=== PATIENT | male | born 1955 | race Caucasian/White ===

== ENCOUNTER 2016-10-26 14:59 | Inpatient (IN) | payer BC ==
[~2016-10-26] VITALS: Ht 170.2 cm; Wt 72.7 kg
[~2016-10-26 14:59] MED LIST: BUSP5TAB59 PO; CHOL1CHW10 PO; CITA40TA4 PO
[2016-10-26] MEDS ORDERED: SODIUM CHLORIDE 0.9% 1000ML 1,000 ML IV SCH (15:12)
--- NOTE | 2016-10-26 15:19 | EMERGENCY ROOM VISIT NOTE ---
History Report prepared by Martita: Rony Chan Under the Supervision of: Dr. Jake Sorensen D.O. First contact with patient: 15:11 Chief Complaint: STROKE SYMPTOMS Stated Complaint: FLUTTERING IN EYES, BAD BEST, MRI SAID MINI STROKES Nursing Triage Summary: Triage note: pt reports he had an mri done at [address] [place] [address] yesterday due to having blurred vision and bad headaches x 6 days. pt reports he was called and told to come to ed because they said he is having mini strokes and part of his brain is not getting blood. History of Present Illness The patient is a 61 year old male who presents to the Emergency Room with complaints of persistent stroke symptoms that started 6 days ago. The patient had an MRI done outpatient yesterday, and was then called to come to the ED today due to the MRI revealing mini strokes. The patient has been having blurred vision and a headache for 6 days. He notes that his vision has been getting "fluttery" in both eyes. He initially had nausea and vomiting, but that has ceased. The patient denies any known irregular heartbeat or atrial fibrillation history. The patient is not on any blood thinners. His medical problems include depression, anxiety, and hyperlipidemia. The patient does not drink alcohol or use tobacco products. Source of History: patient, nursing staff Onset: 6 days ago Position: other (global - stroke symptoms) Timing: other (persistent) Associated Symptoms: + headache, No nausea (current), No vomiting (current) Note: Associated symptoms: Fluttering in both eyes, blurry vision. Review of Systems See HPI for pertinent positives & negatives. A total of 10 systems reviewed and were otherwise negative. Past Medical & Surgical Medical Problems: (1) Anxiety (2) Depressive Disorder Nec (3) Deviated Nasal Septum (4) GERD (gastroesophageal reflux disease) (5) Subacute CVA Surgical Problems: (1) History of nasal septoplasty (2) History of wisdom tooth extraction Family History FH: cancer FH: diabetes mellitus FH: heart disease Social History Smoking Status: Never Smoker Alcohol Use: occasionally Marital Status: Occupation Status: employed Current/Historical Medications Scheduled Atorvastatin (Atorvastatin Calcium), 10 MG PO DAILY Buspirone HCl (Buspirone HCl), 5 MG PO BID Cholecalciferol (Vitamin D3), 1,000 INTER.UNIT PO QAM Citalopram (Citalopram Hydrobromide), 40 MG PO HS Scheduled PRN Omeprazole (Prilosec), 20 MG PO DAILY PRN for Heartburn Allergies Coded Allergies: Bee Venom (Verified Allergy, Unknown, Swelling, 12/29/15) Physical Exam Vital Signs Date Time Temp Pulse Resp B/P Pulse Ox O2 Delivery O2 Flow Rate FiO2 10/26/16 16:06 52 16 150/84 97 Room Air 10/26/16 15:40 95 Room Air 10/26/16 15:38 63 10/26/16 15:07 36.7 61 18 153/77 96 Room Air Physical Exam GENERAL: Patient is awake, alert, and in no acute distress. Patient is resting comfortably and showing no signs of anxiety EYES: The conjunctivae are clear. The pupils are round and reactive. EARS, NOSE, MOUTH AND THROAT: The nose is without any evidence of any deformity. Mucous membranes are moist tongue is midline NECK: The neck is nontender and supple. No bruits noted to auscultation. RESPIRATORY: Normal respiratory effort is noted there is no evidence of wheezing rhonchi or rales CARDIOVASCULAR: Regular rate and rhythm noted there no murmurs rubs or gallops normal S1 normal S2 GASTROINTESTINAL: The abdomen is soft. Bowel sounds are present in all quadrants. Abdomen is nontender MUSCULOSKELETAL/EXTREMITIES: There is no evidence of gross deformity full range of motion is noted in the hips and shoulders SKIN: There is no obvious evidence of any rash. There are no petechiae, pallor or cyanosis noted. NEUROLOGIC: Patient is awake alert and oriented x3 strength is symmetric patellar reflexes are 2+ bilaterally Medical Decision & Procedures ER Provider Diagnostic Interpretation: Radiology results as stated below per my review and radiologist interpretation: HEAD CT NONCONTRAST CT DOSE: 537.48 mGy.cm HISTORY: Stroke symptoms. Stroke TECHNIQUE: Multiaxial CT images of the head were performed without the use of intravenous contrast. Automated exposure control was utilized for this study. Comparison: Head CT 02/12/2016. Findings: The paranasal sinuses and mastoid air cells are clear. The calvarium and skull base are intact. The ventricles and sulci are within normal limits. There is no mass, hematoma, midline shift, or acute infarct. Impression: No acute intracranial abnormality. Electronically signed by: Cristhian Poole M.D. 10/26/2016 3:57 PM Dictated Date/Time: 10/26/2016 3:54 PM CHEST ONE VIEW PORTABLE CLINICAL HISTORY: Stroke HEADACHE COMPARISON STUDY: 12/27/2011 FINDINGS: The cardiac and mediastinal contours are normal. There is no evidence of focal pulmonary consolidation. There is no evidence of failure. No pleural effusions are visualized.[ There are minor right basilar atelectatic changes. IMPRESSION: No active disease in the chest. Electronically signed by: Kashif Eller M.D. 10/26/2016 3:23 PM Dictated Date/Time: 10/26/2016 3:22 PM Laboratory Results 10/26/16 16:10 Red Blood Count 4.84, Mean Corpuscular Volume 90.5, Mean Corpuscular Hemoglobin 31.4, Mean Corpuscular Hemoglobin Concent 34.7, Mean Platelet Volume 10.5, Neutrophils (%) (Auto) 65.7, Lymphocytes (%) (Auto) 23.6, Monocytes (%) (Auto) 8.1, Eosinophils (%) (Auto) 1.8, Basophils (%) (Auto) 0.6, Neutrophils # (Auto) 5.60, Lymphocytes # (Auto) 2.01, Monocytes # (Auto) 0.69, Eosinophils # (Auto) 0.15, Basophils # (Auto) 0.05 10/26/16 16:10 Test 10/26/16 16:00 10/26/16 16:10 Urine Color YELLOW Urine Appearance CLEAR (CLEAR) Urine pH 7.5 (4.5-7.5) Urine Specific [place] 1.004 (1.000-1.030) Urine Protein NEG (NEG) Urine Glucose (UA) NEG (NEG) Urine Ketones NEG (NEG) Urine Occult Blood NEG (NEG) Urine Nitrite NEG (NEG) Urine Bilirubin NEG (NEG) Urine Urobilinogen NEG (NEG) Urine Leukocyte Esterase NEG (NEG) Urine Opiates Screen NEG (NEG) Urine Methadone, Qualitative NEG (NEG) Urine Barbiturates NEG (NEG) Urine Phencyclidine (PCP) Level NEG (NEG) Ur Amphetamine/Methamphetamine NEG (NEG) MDMA (Ecstasy) Screen NEG (NEG) Urine Benzodiazepines Screen NEG (NEG) Urine Cocaine Metabolite NEG (NEG) Urine Marijuana (THC) NEG (NEG) White Blood Count 8.52 K/uL (4.8-10.8) Red Blood Count 4.84 M/uL (4.7-6.1) Hemoglobin 15.2 g/dL (14.0-18.0) Hematocrit 43.8 % (42-52) Mean Corpuscular Volume 90.5 fL (80-100) Mean Corpuscular Hemoglobin 31.4 pg (25-34) Mean Corpuscular Hemoglobin Concent 34.7 g/dl (32-36) Platelet Count 204 K/uL (130-400) Mean Platelet Volume 10.5 fL (7.4-10.4) Neutrophils (%) (Auto) 65.7 % Lymphocytes (%) (Auto) 23.6 % Monocytes (%) (Auto) 8.1 % Eosinophils (%) (Auto) 1.8 % Basophils (%) (Auto) 0.6 % Neutrophils # (Auto) 5.60 K/uL (1.4-6.5) Lymphocytes # (Auto) 2.01 K/uL (1.2-3.4) Monocytes # (Auto) 0.69 K/uL (0.11-0.59) Eosinophils # (Auto) 0.15 K/uL (0-0.5) Basophils # (Auto) 0.05 K/uL (0-0.2) RDW Standard Deviation 40.1 fL (36.4-46.3) RDW Coefficient of Variation 12.0 % (11.5-14.5) Immature Granulocyte % (Auto) 0.2 % Immature Granulocyte # (Auto) 0.02 K/uL (0.00-0.02) Prothrombin Time 10.4 SECONDS (9.0-12.0) Prothromb Time International Ratio 1.0 (0.9-1.1) Activated Partial Thromboplast Time 27.5 SECONDS (21.0-31.0) Partial Thromboplastin Ratio 1.1 Anion Gap 9.0 mmol/L (3-11) Est Creatinine Clear Calc Drug Dose 85.5 ml/min Estimated GFR () 109.5 Estimated GFR (Non- 94.5 BUN/Creatinine Ratio 11.4 (10-20) Calcium Level 9.0 mg/dl (8.5-10.1) Total Bilirubin 0.9 mg/dl (0.2-1) Direct Bilirubin 0.2 mg/dl (0-0.2) Aspartate Amino Transf (AST/SGOT) 29 U/L (15-37) Alanine Aminotransferase (ALT/SGPT) 42 U/L (12-78) Alkaline Phosphatase 110 U/L (45-117) Total Creatine Kinase 73 U/L (39-308) Creatine Kinase MB 0.9 ng/ml (0.5-3.6) Creatine Kinase MB Ratio 1.2 (0-3.0) Troponin I < 0.015 ng/ml (0-0.045) Total Protein 7.3 gm/dl (6.4-8.2) Albumin 3.9 gm/dl (3.4-5.0) Laboratory results per my review. Medications Administered Medications (Trade) Dose Ordered Sig/Elie Route Start Time Stop Time Status Last Admin Dose Admin Sodium Chloride (Nss 1000ml) 1,000 ml @ 50 mls/hr Q20H IV 10/26/16 15:12 11/25/16 15:11 10/26/16 16:00 50 MLS/HR ECG Indication: other (stroke symptoms) Rate (beats per minute): 55 Rhythm: sinus bradycardia Findings: no ectopy, other (no acute ST segment abnormalities, LVH noted by voltage criteria) Comparison ECG Date: no prior available ED Course 1511: The patient was evaluated in room B7. A complete history and physical examination were performed. 1512: Ordered NSS 1000 ml @ 50 mls/hr IV. 1613: I reevaluated the patient and he is resting comfortably. The patient verbally expressed understanding and agreement with the treatment plan. The patient will be evaluated for further treatment. 1616: I discussed the patient with Kait Manzanares. She will evaluate the patient for further treatment. Medical Decision Differential diagnosis: Etiologies such as metabolic, infection, hypo/hyperglycemia, electrolyte abnormalities, cardiac sources, intracerebral event, toxicologic, neurologic, as well as others were entertained. Nursing notes reviewed. The patient's MRI report was also reviewed. The patient is a 61-year-old male who presented to the emergency department for an acute neurologic problem. The patient states he's been having problems with his vision and fluttering in his vision for 6 days. The patient states his symptoms are slowly improving. The patient called his primary care physician and was sent for an MRI as an outpatient. The MRI report was obtained and the patient was told to go directly to the emergency department. The MRI appeared to show multiple areas of subacute infarct and he was felt to be at high risk for embolic phenomenon causing his complaints. The patient's CAT scan today does not show any acute bleeding. I discussed the patient's laboratory and radiographic studies with him. At this time he does not appear to be a candidate for TPA because of the onset of symptoms being greater than one day ago. He also has no focal neurologic deficits at this time. I discussed his case with the on-call [facility] hospitalist group. They've agreed to evaluate the patient in the emergency department for further management and disposition. It is possible he may require further workup such as echocardiogram and carotid Dopplers to further evaluate the cause of the MRI findings. Consults Time Called: 1606 Consulting Physician: Kait Manzanares Returned Call: 1616 I discussed the patient with Kait Manzanares. She will evaluate the patient for further treatment. Impression Primary Impression: CVA (cerebral vascular accident) Scribe Attestation The scribe's documentation has been prepared under my direction and personally reviewed by me in its entirety. I confirm that the note above accurately reflects all work, treatment, procedures, and medical decision making performed by me. Stroke t-PA Criteria Reviewed Does NOT meet criteria for t-PA Strict Exclusion Criteria Normal neurologic examination Departure Information Dispostion Being Evaluated By Hospitalist Referrals Watson Cole M.D. (PCP) Patient Instructions [facility] Problem Qualifiers Primary Impression: CVA (cerebral vascular accident) CVA mechanism: unspecified Qualified Codes: I63.9 - Cerebral infarction, unspecified
--- NOTE | 2016-10-26 15:25 | DIAGNOSTIC IMAGING REPORT ---
CHEST ONE VIEW PORTABLE CLINICAL HISTORY: Stroke HEADACHE COMPARISON STUDY: 12/27/2011 FINDINGS: The cardiac and mediastinal contours are normal. There is no evidence of focal pulmonary consolidation. There is no evidence of failure. No pleural effusions are visualized.[ There are minor right basilar atelectatic changes. IMPRESSION: No active disease in the chest. Electronically signed by: Kashif Eller M.D. 10/26/2016 3:23 PM Dictated Date/Time: 10/26/2016 3:22 PM
[2016-10-26] MEDS ORDERED: BSP/5 PO (15:38)
--- NOTE | 2016-10-26 16:00 | DIAGNOSTIC IMAGING REPORT ---
HEAD CT NONCONTRAST CT DOSE: 537.48 mGy.cm HISTORY: Stroke symptoms. Stroke TECHNIQUE: Multiaxial CT images of the head were performed without the use of intravenous contrast. Automated exposure control was utilized for this study. Comparison: Head CT 02/12/2016. Findings: The paranasal sinuses and mastoid air cells are clear. The calvarium and skull base are intact. The ventricles and sulci are within normal limits. There is no mass, hematoma, midline shift, or acute infarct. Impression: No acute intracranial abnormality. Electronically signed by: Cristhian Poole M.D. 10/26/2016 3:57 PM Dictated Date/Time: 10/26/2016 3:54 PM
[2016-10-26 16:22] LABS: MANUAL MICROSCOPIC REQUIRED? NO; REVIEW REQ? NO; URINE APPEARANCE CLEAR (CLEAR); URINE BILIRUBIN NEG (NEG); URINE COLOR YELLOW; URINE NITRITE NEG (NEG); URINE PH 7.5 (4.5-7.5); URINE SPECIFIC GRAVITY 1.004 (1.000-1.030); UROBILINOGEN NEG (NEG)
[2016-10-26 16:29] LABS: BASO % 0.6 %; BASO ABS # 0.05 K/uL (0-0.2); COMPLETE YES; EOS % 1.8 %; HEMATOCRIT 43.8 % (42-52); IG% 0.2 %; LYMPH % 23.6 %; LYMPH ABS # 2.01 K/uL (1.2-3.4); MEAN CELL VOLUME 90.5 fL (80-100); MEAN CORPUSCULAR HEMOGLOBIN 31.4 pg (25-34); MEAN CORPUSCULAR HGB CONC 34.7 g/dl (32-36); MEAN PLATELET VOLUME 10.5 fL (7.4-10.4); MONO % 8.1 %; NEUT % 65.7 %; PLATELET COUNT 204 K/uL (130-400); RED BLOOD COUNT 4.84 M/uL (4.7-6.1); WHITE BLOOD COUNT 8.52 K/uL (4.8-10.8)
[2016-10-26 16:38] LABS: PARTIAL THROMBOPLASTIN RATIO 1.1; PROTHROMBIN TIME (PATIENT) 10.4 SECONDS (9.0-12.0)
[2016-10-26 16:46] LABS: ALT/SGPT 42 U/L (12-78); BLOOD UREA NITROGEN 10 mg/dl (7-18); BUN/CREATININE RATIO 11.4 (10-20); CARBON DIOXIDE 26 mmol/L (21-32); CHLORIDE 105 mmol/L (98-107); CREATININE 0.87 mg/dl (0.60-1.40); GLUCOSE 86 mg/dl (70-99); POTASSIUM 3.7 mmol/L (3.5-5.1); SODIUM 140 mmol/L (136-145)
[2016-10-26 16:51] LABS: ALKALINE PHOSPHATASE 110 U/L (45-117); AST/SGOT 29 U/L (15-37); CKMB/CK RATIO 1.2 (0-3.0)
[2016-10-26 16:57] LABS: BENZODIAZEPINE, URINE NEG (NEG); COCAINE,URINE NEG (NEG); PHENCYCLIDINE, URINE NEG (NEG)
[2016-10-26] MEDS ORDERED: ACETAMINOPHEN 325 MG TAB PO PRN (17:30)
[2016-10-26] MEDS ORDERED: PHARMACIST DISCHARGE MED REC CONSULT PRN (17:30)
[2016-10-26] MEDS ORDERED: ASPIRIN 81 MG ECTAB PO ONE (17:30)
[2016-10-26] MEDS ORDERED: ONDANSETRON INJ 2 MG/ML 2 ML VIAL IV PRN (17:30)
[2016-10-26] MEDS ORDERED: PANTOprazole SOD 40 MG TAB PO PRN (18:00)
[2016-10-26] MEDS ORDERED: OPTIRAY 320 IV PRN (18:15)
--- NOTE | 2016-10-26 18:22 | History and Physical ---
History & Physical Date & Time of Service: Oct 26, 2016 at 17:40 Chief Complaint: Fluttering In Eyes, Bad Best, Mri Said Mini Strokes Primary Care Physician: Watson Cole M.D. History of Present Illness Source: patient, spouse ( at bedside), clinic records This is a 61 year old male with PMH of dyslipidemia and other problems listed below who was sent to the ED for abnormal outpatient MRI brain. Patient reports 6 days ago he developed "fluttering" of his vision with "dark patches" in his vision. After the onset of vision changes developed a severe right parietal headache. The visual changes resolved the following day but headache persisted. Had 1 episode N/V 5 days ago which resolved. He was seen in [facility] internal medicine clinic on 10/22 and had outpatient MRI done yesterday 10/25 which showed 2 focal areas of subacute ischemia, so was sent to the ER. Pt states headache is currently rated 4/10. Has tried ibuprofen at home which took the edge off. He reports having similar BEST with visual changes in the past which self resolved so he was not evaluated by a physician. Had chest pain in the past, non- exertional, related to anxiety at work, but this has not occurred in the past week. Denies fever, chills, speech or swallowing difficulty, facial droop, focal weakness or numbness, dizziness, balance difficulty, SOB, abdominal pain, diarrhea, urinary changes, calf pain, edema, rash. Denies history of HTN, DM, arrhythmia, TIA, CVA, migraine. He is not aware of any hx of GI bleeding or brain bleed. Patient's outpatient MRI did show an area consistent with small old bleed. Past Medical/Surgical History Medical Problems: (1) Anxiety Status: Chronic (2) Depression Status: Chronic (3) Dyslipidemia Status: Chronic (4) Generalized anxiety disorder Status: Chronic (5) GERD (gastroesophageal reflux disease) Status: Chronic Surgical Problems: (1) History of nasal septoplasty Status: Chronic (2) History of wisdom tooth extraction Status: Chronic Family History CVA GRANDMOTHER FH: cancer FH: diabetes mellitus FH: heart disease Social History Smoking Status: Never Smoker Smokeless Tobacco Use: No Alcohol Use: occasionally (1 drink per month) Drug Use: none Marital Status: Housing status: lives with significant other (with ) Occupational Status: employed (works for [employer]) Immunizations History of Influenza Vaccine: No History of Tetanus Vaccine?: Yes History of Pneumococcal: No History of Hepatitis B Vaccine: No Allergies Coded Allergies: Bee Venom (Verified Allergy, Unknown, Swelling, 12/29/15) Home Medications Scheduled Atorvastatin (Atorvastatin Calcium), 10 MG PO DAILY Buspirone HCl (Buspirone HCl), 5 MG PO QAM Cholecalciferol (Vitamin D3), 1,000 INTER.UNIT PO QAM Citalopram (Citalopram Hydrobromide), 40 MG PO HS Scheduled PRN Omeprazole (Prilosec), 20 MG PO DAILY PRN for Heartburn Review of Systems Ten point ROS performed with pertinent positives and negatives noted in HPI. Physical Exam Vital Signs Date Time Temp Pulse Resp B/P Pulse Ox O2 Delivery O2 Flow Rate FiO2 10/26/16 16:06 52 16 150/84 97 Room Air 10/26/16 15:40 95 Room Air 10/26/16 15:38 63 10/26/16 15:07 36.7 61 18 153/77 96 Room Air General Appearance: WD/WN, no apparent distress, + pertinent finding (pleasant alert 61 year old male, no distress, at bedside) Head: normocephalic, atraumatic Eyes: normal inspection, PERRL, EOMI ENT: hearing grossly normal, pharynx normal Neck: supple, no JVD, no carotid bruits, trachea midline Respiratory/Chest: lungs clear, normal breath sounds, no respiratory distress, no accessory muscle use Cardiovascular: regular rate, rhythm, no murmur Abdomen/GI: normal bowel sounds, non tender, soft Extremities/Musculoskelatal: no calf tenderness, no pedal edema Neurologic/Psych: dye weigher helper II-XII nml as tested, no motor/sensory deficits, alert, normal mood/affect, oriented x 3, + pertinent finding (finger to nose intact. toes downgoing. gait not assessed.) Skin: normal color, warm/dry Diagnostics Laboratory Results Results Past 24 Hours Test 10/26/16 16:00 10/26/16 16:10 Range/Units Urine Color YELLOW Urine Appearance CLEAR CLEAR Urine pH 7.5 4.5-7.5 Urine Specific [place] 1.004 1.000-1.030 Urine Protein NEG NEG Urine Glucose (UA) NEG NEG Urine Ketones NEG NEG Urine Occult Blood NEG NEG Urine Nitrite NEG NEG Urine Bilirubin NEG NEG Urine Urobilinogen NEG NEG Urine Leukocyte Esterase NEG NEG Urine Opiates Screen NEG NEG Urine Methadone, Qualitative NEG NEG Urine Barbiturates NEG NEG Urine Phencyclidine (PCP) Level NEG NEG Ur Amphetamine/Methamphetamine NEG NEG MDMA (Ecstasy) Screen NEG NEG Urine Benzodiazepines Screen NEG NEG Urine Cocaine Metabolite NEG NEG Urine Marijuana (THC) NEG NEG White Blood Count 8.52 4.8-10.8 K/uL Red Blood Count 4.84 4.7-6.1 M/uL Hemoglobin 15.2 14.0-18.0 g/dL Hematocrit 43.8 42-52 % Mean Corpuscular Volume 90.5 80-100 fL Mean Corpuscular Hemoglobin 31.4 25-34 pg Mean Corpuscular Hemoglobin Concent 34.7 32-36 g/dl Platelet Count 204 130-400 K/uL Mean Platelet Volume 10.5 7.4-10.4 fL Neutrophils (%) (Auto) 65.7 % Lymphocytes (%) (Auto) 23.6 % Monocytes (%) (Auto) 8.1 % Eosinophils (%) (Auto) 1.8 % Basophils (%) (Auto) 0.6 % Neutrophils # (Auto) 5.60 1.4-6.5 K/uL Lymphocytes # (Auto) 2.01 1.2-3.4 K/uL Monocytes # (Auto) 0.69 0.11-0.59 K/uL Eosinophils # (Auto) 0.15 0-0.5 K/uL Basophils # (Auto) 0.05 0-0.2 K/uL RDW Standard Deviation 40.1 36.4-46.3 fL RDW Coefficient of Variation 12.0 11.5-14.5 % Immature Granulocyte % (Auto) 0.2 % Immature Granulocyte # (Auto) 0.02 0.00-0.02 K/uL Prothrombin Time 10.4 9.0-12.0 SECONDS Prothromb Time International Ratio 1.0 0.9-1.1 Activated Partial Thromboplast Time 27.5 21.0-31.0 SECONDS Partial Thromboplastin Ratio 1.1 Sodium Level 140 136-145 mmol/L Potassium Level 3.7 3.5-5.1 mmol/L Chloride Level 105 98-107 mmol/L Carbon Dioxide Level 26 21-32 mmol/L Anion Gap 9.0 3-11 mmol/L Blood Urea Nitrogen 10 7-18 mg/dl Creatinine 0.87 0.60-1.40 mg/dl Est Creatinine Clear Calc Drug Dose 85.5 ml/min Estimated GFR () 109.5 Estimated GFR (Non- 94.5 BUN/Creatinine Ratio 11.4 10-20 Random Glucose 86 70-99 mg/dl Calcium Level 9.0 8.5-10.1 mg/dl Total Bilirubin 0.9 0.2-1 mg/dl Direct Bilirubin 0.2 0-0.2 mg/dl Aspartate Amino Transf (AST/SGOT) 29 15-37 U/L Alanine Aminotransferase (ALT/SGPT) 42 12-78 U/L Alkaline Phosphatase 110 45-117 U/L Total Creatine Kinase 73 39-308 U/L Creatine Kinase MB 0.9 0.5-3.6 ng/ml Creatine Kinase MB Ratio 1.2 0-3.0 Troponin I < 0.015 0-0.045 ng/ml Total Protein 7.3 6.4-8.2 gm/dl Albumin 3.9 3.4-5.0 gm/dl Diagnostic Radiology HEAD CT NONCONTRAST CT DOSE: 537.48 mGy.cm HISTORY: Stroke symptoms. Stroke TECHNIQUE: Multiaxial CT images of the head were performed without the use of intravenous contrast. Automated exposure control was utilized for this study. Comparison: Head CT 02/12/2016. Findings: The paranasal sinuses and mastoid air cells are clear. The calvarium and skull base are intact. The ventricles and sulci are within normal limits. There is no mass, hematoma, midline shift, or acute infarct. Impression: No acute intracranial abnormality. CHEST ONE VIEW PORTABLE CLINICAL HISTORY: Stroke HEADACHE COMPARISON STUDY: 12/27/2011 FINDINGS: The cardiac and mediastinal contours are normal. There is no evidence of focal pulmonary consolidation. There is no evidence of failure. No pleural effusions are visualized.[ There are minor right basilar atelectatic changes. IMPRESSION: No active disease in the chest. OUTPATIENT MRI 10/25/16 IMPRESSION: 1. 2 focal areas of restricted diffusion observed int eh right cerebral hemisphere; 1 posterior to the atria of the right lateral ventricle in the right parioeto-occipital subcortical white matter and the 2nd posteriorly i the subcortical white matter of the right occipital lobe. There is corresponding increased FLAIR and T2 singal in these regions and findings are therefore most consistent with regions of early subacute ischemia. 2. 7 mm focus of susceptibility artifact int eh left temporal lobe insular coretex most consistent with hemosiderin deposition from small old bleed. 3. Bilateral cerebral hemisphere microvascular chronic ischemic change. 4. Mild atrophic change. EKG sinus bradycardia rate 55 Impression Assessment and Plan SUBACUTE CVA Onset of symptoms 6 days ago Outpatient MRI findings listed above Risk factor: dyslipidemia, no other known risk factors CT head in ER- no acute findings EKG- sinus bradycardia Monitor in telemetry to r/o arrhythmia, check CTA head and neck, echo with bubble study Start aspirin 325 mg daily- 1st dose now Continue statin; check fasting lipid panel in am Neuro checks PT, OT, speech consultations Neurology consulted; discussed with Dr. Arevalo; appreciate input DYSLIPIDEMIA Continue statin Fasting lipid panel in am ANXIETY/ DEPRESSION Continue Buspar and Celexa GERD Continue PRN PPI DVT PROPHYLAXIS Lovenox SQ FULL CODE DISPOSITION Follows with Dr. Cole for primary care Patient seen in collaboration with Dr. Recinos. Please see her addendum. I have seen and examined the patient and agree with the assessment and plan as stated above. MRI findings consistent with subacute stroke. Old bleed may have been from a fall last January where he struck his head on a doorframe? Visual symptoms resolved 5 days ago and his headache is improved. Denies nausea and vomiting since 5 days ago. All other stroke symptoms denied as above. On physical, vitals are stable and there are no neuro deficits. Gait was not assessed but he reports ambulating to the bathroom earlier without any issues. Additionally, fundoscopic exam appears normal. CTA tonight was negative. Agree with plan above including Neuro consult, ASA 325mg and will increase Lipitor to 80mg for secondary prevention of stroke. Appreciate Neuro recs in am. Needs TTE and formal evals as above, then likely ok to go home. Tonia Recinos, DO Level of Care Telemetry Resuscitation Status FULL RESUSCITATION VTE Prophylaxis VTE Risk Assessment Done? Y/N: Yes Risk Level: Moderate Given or contraindicated: Enoxaparin (Lovenox)SQ
--- NOTE | 2016-10-26 18:51 | DIAGNOSTIC IMAGING REPORT ---
HEAD CTA HISTORY: Stroke symptoms. CVA TECHNIQUE: Multiaxial CT images of the head were performed after the intravenous administration of contrast to evaluate the major cerebral vessels. Maximum intensity projection images were also obtained. COMPARISON: Head CT 10/26/2016 FINDINGS: There is no mass, hematoma, midline shift, or acute infarct. Visualized intracranial internal carotid arteries, distal vertebral arteries, and basilar artery are widely patent. There is no significant stenosis, occlusion, or aneurysm seen within the bilateral ACAs, MCAs, or supervisor [employer] wood. IMPRESSION: No significant stenosis, occlusion, or aneurysm within the [place]. Electronically signed by: Cristhian Poole M.D. 10/26/2016 6:49 PM Dictated Date/Time: 10/26/2016 6:45 PM
--- NOTE | 2016-10-26 18:54 | DIAGNOSTIC IMAGING REPORT ---
NECK CTA HISTORY: Stroke symptoms. TECHNIQUE: Multiaxial CT images of the neck were performed following the intravenous administration of contrast to evaluate the major cervical vessels. Maximum intensity projection images were also obtained. All measurements were calculated based on NASCET criteria. COMPARISON STUDY: None. FINDINGS: The aortic arch and proximal great vessels are widely patent. There is no significant stenosis, occlusion, or dissection identified within the bilateral common carotid, internal carotid, or vertebral arteries. IMPRESSION: No significant stenosis, occlusion, or dissection identified within the carotid or vertebral arteries. Electronically signed by: Cristhian Poole M.D. 10/26/2016 6:52 PM Dictated Date/Time: 10/26/2016 6:49 PM
[2016-10-26] MEDS ORDERED: ASPIRIN 325 MG ECTAB PO ONE (19:00)
[2016-10-26 19:05] VITALS: BP 134/93; PULSE 56; TEMP 36.6; O2SAT 96; Ht 170.2 cm; Wt 72.7 kg
[2016-10-26] MEDS: CITALOPRAM 40 MG TAB PO SCH (20:07)
[2016-10-26] MEDS: ENOXAPARIN 40 MG/0.4 ML SYR SC SCH (20:08)
[2016-10-26] MEDS ORDERED: ATORVASTATIN 40 MG TAB PO ONE (22:00)
[2016-10-26] MEDS ORDERED: OMEP20CA9 PO (22:59)
[2016-10-26] MEDS ORDERED: LPT10 PO (22:59)
[2016-10-27] VITALS (10 sets, daily range): BP systolic 107–141; BP diastolic 62–71; PULSE 52–64; TEMP 36.5–36.8; O2SAT 92–95
[2016-10-27 06:17] LABS: ESTIMATED AVERAGE GLUCOSE 157 mg/dl; HA1C FLAG Normal (Normal)
[2016-10-27 06:27] LABS: BASO % 1.2 %; COMPLETE YES; EOS % 3.6 %; HEMATOCRIT 44.4 % (42-52); IG% 0.1 %; LYMPH ABS # 2.52 K/uL (1.2-3.4); MEAN CORPUSCULAR HEMOGLOBIN 31.8 pg (25-34); MEAN CORPUSCULAR HGB CONC 34.9 g/dl (32-36); MEAN PLATELET VOLUME 10.3 fL (7.4-10.4); MONO % 9.6 %; NEUT % 55.5 %; PLATELET COUNT 204 K/uL (130-400); RED BLOOD COUNT 4.88 M/uL (4.7-6.1); WHITE BLOOD COUNT 8.41 K/uL (4.8-10.8)
[2016-10-27 07:06] LABS: BUN/CREATININE RATIO 14.9 (10-20); CALCIUM 9.1 mg/dl (8.5-10.1); CREATININE 0.91 mg/dl (0.60-1.40)
[2016-10-27 07:09] LABS: CHOLESTEROL/HDL RATIO 4.6
[2016-10-27] MEDS: ASPIRIN 325 MG ECTAB PO SCH (08:56)
[2016-10-27] MEDS: CHOLECALCIFEROL 1000 INTER.UNIT TAB PO SCH (08:56)
[2016-10-27] MEDS ORDERED: ATORVASTATIN 10 MG TAB PO SCH (09:00)
[2016-10-27] MEDS ORDERED: ASPIRIN 81 MG ECTAB PO SCH (09:00)
--- NOTE | 2016-10-27 10:18 | NEUROLOGY CONSULTATION ---
DATE OF CONSULTATION: 10/27/2016 DATE OF CONSULTATION: 10/27/2016. REASON FOR CONSULTATION: New stroke. HISTORY OF PRESENT ILLNESS: The patient is a 61-year-old left-handed male with hyperlipidemia on medications, who approximately 7 days prior to admission developed fluttering in his vision with some dark patches. Almost half an hour after the onset, he developed a modest right parietal headache which was persistent. The visual symptoms lasted about 24 hours and then resolved, but the headache persisted. He had one episode of nausea and vomiting 5 days prior, was seen by primary, had an outpatient MRI at [place] [id number] on which showed a right parietal, right occipital infarction which were subacute and an area of hemosiderin deposition in the left temporal lobe with chronic microvascular changes. The patient notes some mild unsteadiness today, but otherwise no new symptoms. He had been well, had not had any head or neck injury, medical or dental procedures, chest pain, chest pain with exertion, palpitations or shortness of breath. He has been well. No fevers, chills, sweats, rashes. No calf swelling. He has not had any diarrhea. PAST MEDICAL HISTORY: Anxiety, depression, dyslipidemia, reflux. He has no history of rheumatic fever, murmur, DVT, cancer, PE, stroke or WI. SURGICAL HISTORY: Nasal septoplasty, tracheostomy when he had pneumonia at age 5, wisdom tooth extraction. SOCIAL HISTORY: Nonsmoker, nondrinker. The patient occasionally drinks, works at [employer]. FAMILY HISTORY: Grandmother had a stroke. Father's family has early heart disease. ALLERGIES: BEE VENOM. HOME MEDICATIONS: Atorvastatin, buspirone, vitamin D3 and Celexa, p.r.n. omeprazole. REVIEW OF SYSTEMS: As above. A CT of the head in our facility noncontrast is unremarkable. CTA of the head and neck showed no significant stenosis, occlusion intersection with the vertebrobasilar system. A CTA of the head showing no significant stenosis, occlusion or aneurysm within the lower brule of [place]. The patient's baseline EKG showed sinus bradycardia, moderate voltage criteria for LVH. LABORATORY DATA: White count 8.52, H\T\H 15/43, platelet count 204. PT 10.4, PTT 27.5. Chemistry panel notable for a LDL cholesterol 93. Hemoglobin A1c of 7.1. Others noncontributory. PHYSICAL EXAMINATION: VITAL SIGNS: 36.7, 59, 18, 141/71. GENERAL: The patient is awake and alert. There is normal speech and language. He is oriented x3 and his affect is appropriate. HEAD: Normocephalic, atraumatic. NECK: Supple. There is no temporal tenderness or temporal artery tenderness. NEUROLOGIC: Pupils are equal and reactive. I was unable to reliably visualize the optic nerves. There is a left inferior temporal quadrantanopsia, otherwise there is normal motility, facial sensation, facial symmetry, normal speech and language. Tongue is midline. MOTOR: Normal bulk and tone. Full strength, no drift. Normal rapid alternating movements. Symmetric reflexes. Downgoing toes. Ejaven-xb-xpoq and pqmb-wg-wyfi are normal. His gait is unremarkable. He has mild difficulty with tandem. Reflexes symmetric. Toes downgoing. Sensation intact to light touch, temperature. There was no double simultaneous extinction. IMPRESSION: By report right STRATEGY ASSOCIATE, MCA infarction.with neg CTA head/neck PLAN: Aspirin, add Plavix, after 3 days reduce the dose of aspirin to 81 mg, echo with bubble study, telemetric monitoring, hypercoagulable state, CardioNet monitor as an outpatient. Query treat for diabetes and more vigorous lowering of LDL with a goal LDL of 70. Will follow with you. ABE
[2016-10-27] MEDS: CLOPIDOGREL BISULFATE 75 MG TAB PO SCH (10:39)
--- NOTE | 2016-10-27 12:25 | ECHOCARDIOGRAM REPORT ---
*NOTICE TO RECEIVING REPUBLICAN AGENCY This information is strictly Confidential and protected under [place] law. [place] law prohibits you from making any further disclosure of this information unless further disclosure is expressly permitted by the written consent of the person to whom it pertains or is authorized by law. A general authorization for the release of medical or other information is not sufficient for this purpose. Hospital accepts no responsibility if the information is made available to any other person, INCLUDING THE PATIENT. Interpretation Summary * Name: CANDIDA ROBERTS Study Date: 10/27/2016 07:23 AM BP: 122/63 mmHg * Patient Location: .2E\S\E209\S\1 HR: 58 * : 1955 (M/d/yyyy) Gender: Male Height: 67 in * Age: 61 yrs Ethnicity: CA Weight: 154 lb * Ordering Physician: Akila Daniels * Referring Physician: No Doctor, Assigned * Performed By: Ángela Hoffmann RDCS * * Reason For Study: STROKE * BSA: 1.8 m2 * History: STROKE * -- Conclusions -- * The left ventricle is normal in size. * There is mild concentric left ventricular hypertrophy. * The left ventricular wall motion is normal. * Left ventricular systolic function is normal. * Ejection Fraction = 60-65%. * Aortic valve sclerosis mild, without significant aortic valvular stenosis. * Mild aortic regurgitation. * The interatrial septum is intact with no evidence for an atrial septal defect. * Injection of contrast documented no interatrial shunt. Procedure Details * A saline contrast injection was performed to assess for cardiac shunting. * The injection was performed through an intravenous line in the left arm. * The attending nurse who injected the saline contrast was STEVEN BRIDGES. * A total of 20 cc of agitated saline was given. * A complete two-dimensional transthoracic echocardiogram was performed (2D, M-mode, Doppler and color flow Doppler). Left Ventricle * The left ventricle is normal in size. * There is mild concentric left ventricular hypertrophy. * Ejection Fraction = 60-65%. * Left ventricular systolic function is normal. * The left ventricular wall motion is normal. Right Ventricle * The right ventricle is normal in size and function. Atria * The left atrial size is normal. * Right atrial size is normal. * The interatrial septum is intact with no evidence for an atrial septal defect. * Injection of contrast documented no interatrial shunt. Mitral Valve * The mitral valve anatomy is normal. * There is no mitral valve stenosis. * There is trace mitral regurgitation. Tricuspid Valve * The tricuspid valve anatomy is normal. * There is no tricuspid stenosis. * There is trace tricuspid regurgitation. Aortic Valve * The aortic valve is trileaflet. * Aortic valve sclerosis mild, without significant aortic valvular stenosis. * Mild aortic regurgitation. Pulmonic Valve * The pulmonic valve is not well visualized. Great Vessels * The aortic root is normal size. Pericardium/Pleural * There is no pericardial effusion. Great Vessels * Normal inferior vena cava diameter and respiratory variation suggests normal central venous pressure. MMode 2D Measurements and Calculations IVSd 1.2 cm IVSs 1.6 cm LVIDd 4.5 cm LVIDs 2.9 cm LVPWd 1.0 cm LVPWs 1.3 cm IVS/LVPW 1.2 FS 34.7 % EDV(Teich) 92.6 ml ESV(Teich) 33.3 ml EF(Teich) 64.0 % EDV(cubed) 91.3 ml ESV(cubed) 25.4 ml EF(cubed) 72.1 % % IVS thick 27.7 % % LVPW thick 32.1 % LV mass(C)d 182.3 grams LV mass(C)dI 100.8 grams/m\S\2 LV mass(C)s 148.2 grams LV mass(C)sI 81.9 grams/m\S\2 SV(Teich) 59.2 ml SI(Teich) 32.7 ml/m\S\2 SV(cubed) 65.9 ml SI(cubed) 36.4 ml/m\S\2 Ao root diam 2.9 cm Ao root area 6.8 cm\S\2 LA dimension 3.3 cm LA/Ao 1.1 LVAd ap4 28.0 cm\S\2 LVLd ap4 8.2 cm EDV(MOD-sp4) 77.6 ml EDV(sp4-el) 81.0 ml LVAs ap4 15.1 cm\S\2 LVLs ap4 6.6 cm ESV(MOD-sp4) 29.5 ml ESV(sp4-el) 29.3 ml EF(MOD-sp4) 62.0 % EF(sp4-el) 63.9 % LVAd ap2 29.3 cm\S\2 LVLd ap2 8.5 cm EDV(MOD-sp2) 84.5 ml EDV(sp2-el) 85.8 ml LVAs ap2 15.7 cm\S\2 LVLs ap2 6.7 cm ESV(MOD-sp2) 31.3 ml ESV(sp2-el) 31.2 ml EF(MOD-sp2) 62.9 % EF(sp2-el) 63.6 % LVLd %diff 3.2 % EDV(MOD-bp) 81.2 ml LVLs %diff 2.0 % ESV(MOD-bp) 30.9 ml EF(MOD-bp) 61.9 % SV(MOD-sp4) 48.1 ml SI(MOD-sp4) 26.6 ml/m\S\2 SV(MOD-sp2) 53.1 ml SI(MOD-sp2) 29.4 ml/m\S\2 SV(MOD-bp) 50.2 ml SI(MOD-bp) 27.8 ml/m\S\2 SV(sp4-el) 51.7 ml SI(sp4-el) 28.6 ml/m\S\2 SV(sp2-el) 54.5 ml SI(sp2-el) 30.1 ml/m\S\2 Doppler Measurements and Calculations MV E max hannah 79.1 cm/sec MV A max hannah 57.7 cm/sec MV E/A 1.4 MV dec time 0.17 sec Ao V2 max 146.8 cm/sec Ao max PG 8.6 mmHg Ao max PG (full) 5.5 mmHg AI max hannah 389.1 cm/sec AI max PG 60.6 mmHg AI dec slope 155.4 cm/sec\S\2 AI P1/2t 733.6 msec LV V1 max PG 3.1 mmHg LV V1 max 88.3 cm/sec TR max hannah 192.7 cm/sec
--- NOTE | 2016-10-27 16:51 | Progress Note ---
Internal Med Progress Note Date of Service: Oct 27, 2016. Provider Documentation: SUBJECTIVE: Patient is doing well. Denies any c/o localized weakness, numbness, headaches, nausea, vomiting. No fever, chills. OBJECTIVE: Vital Signs-as noted below Exam: General-AAOX3, no distress Eyes-No icterus Neck-Supple, no bruits Lungs-AEBE , No wheezing, rhonchi Heart-S1, S2 normal Abdomen-Soft, non tender, non distended, BS present Extremities-No edema Neuro-Left inferior quandrantonopsia per neurology; Power 5/5 , sensation normal Lab data as noted below. Diagnostic Radiology HEAD CT NONCONTRAST CT DOSE: 537.48 mGy.cm HISTORY: Stroke symptoms. Stroke TECHNIQUE: Multiaxial CT images of the head were performed without the use of intravenous contrast. Automated exposure control was utilized for this study. Comparison: Head CT 02/12/2016. Findings: The paranasal sinuses and mastoid air cells are clear. The calvarium and skull base are intact. The ventricles and sulci are within normal limits. There is no mass, hematoma, midline shift, or acute infarct. Impression: No acute intracranial abnormality. CHEST ONE VIEW PORTABLE CLINICAL HISTORY: Stroke HEADACHE COMPARISON STUDY: 12/27/2011 FINDINGS: The cardiac and mediastinal contours are normal. There is no evidence of focal pulmonary consolidation. There is no evidence of failure. No pleural effusions are visualized.[ There are minor right basilar atelectatic changes. IMPRESSION: No active disease in the chest. OUTPATIENT MRI 10/25/16 IMPRESSION: 1. 2 focal areas of restricted diffusion observed int eh right cerebral hemisphere; 1 posterior to the atria of the right lateral ventricle in the right parioeto-occipital subcortical white matter and the 2nd posteriorly i the subcortical white matter of the right occipital lobe. There is corresponding increased FLAIR and T2 singal in these regions and findings are therefore most consistent with regions of early subacute ischemia. 2. 7 mm focus of susceptibility artifact int eh left temporal lobe insular coretex most consistent with hemosiderin deposition from small old bleed. 3. Bilateral cerebral hemisphere microvascular chronic ischemic change. 4. Mild atrophic change. ASSESSMENT & PLAN: SUBACUTE CVA (RT PARIETO AND OCCIPITAL LOBE) MRI Brain outpatient - Right parietal and occipital infarct. Symptoms onset 6 days ago- vision changes -Risk factors: Dyslipidemia, no other known risk factors -On ASA 325 mg , Plavix added (reduce dose of aspirin to 81 mg on 10/29/16) per neurology , Statin -Work up- CTA- negative for stenosis, Echocardiogram - EF 60-65%, Mild LVH, Mild AR, Interatrial septum with no ASD,, Lipid panel-LDL 93, goal < 70 -PT/OT/Speech evaluation -Appreciate neurology inputs DIABETES MELLITUS, NEW DIAGNOSIS -HBA1C 7.1 -Not on any medications at home -Will start Metformin on discharge with f/up outpatient DYSLIPIDEMIA -Continue statin Fasting lipid panel -LDL 93 ANXIETY/ DEPRESSION -Continue Buspar and Celexa GERD -Continue PRN PPI DVT PROPHYLAXIS -Lovenox SQ FULL CODE DISPOSITION -Follows with Dr. Cole for primary care Vital Signs: Date Time Temp Pulse Resp B/P Pulse Ox O2 Delivery O2 Flow Rate FiO2 10/27/16 16:00 93 Room Air 10/27/16 15:18 36.8 58 18 125/62 93 Room Air 10/27/16 12:00 Room Air 10/27/16 11:07 36.7 53 20 124/69 93 Room Air 10/27/16 08:12 36.7 59 18 141/71 94 Room Air 10/27/16 08:00 Room Air 10/27/16 04:20 94 Room Air 10/27/16 04:00 36.5 58 18 122/63 94 Room Air 10/27/16 00:16 94 Room Air 10/27/16 00:00 36.5 52 20 133/69 94 Room Air 10/26/16 19:05 36.6 56 22 134/93 96 Room Air 10/26/16 17:59 56 16 154/86 98 Lab Results: Results Past 24 Hours Test 10/27/16 06:16 10/27/16 11:03 Range/Units White Blood Count 8.41 4.8-10.8 K/uL Red Blood Count 4.88 4.7-6.1 M/uL Hemoglobin 15.5 14.0-18.0 g/dL Hematocrit 44.4 42-52 % Mean Corpuscular Volume 91.0 80-100 fL Mean Corpuscular Hemoglobin 31.8 25-34 pg Mean Corpuscular Hemoglobin Concent 34.9 32-36 g/dl Platelet Count 204 130-400 K/uL Mean Platelet Volume 10.3 7.4-10.4 fL Neutrophils (%) (Auto) 55.5 % Lymphocytes (%) (Auto) 30.0 % Monocytes (%) (Auto) 9.6 % Eosinophils (%) (Auto) 3.6 % Basophils (%) (Auto) 1.2 % Neutrophils # (Auto) 4.67 1.4-6.5 K/uL Lymphocytes # (Auto) 2.52 1.2-3.4 K/uL Monocytes # (Auto) 0.81 0.11-0.59 K/uL Eosinophils # (Auto) 0.30 0-0.5 K/uL Basophils # (Auto) 0.10 0-0.2 K/uL RDW Standard Deviation 40.6 36.4-46.3 fL RDW Coefficient of Variation 12.1 11.5-14.5 % Immature Granulocyte % (Auto) 0.1 % Immature Granulocyte # (Auto) 0.01 0.00-0.02 K/uL Sodium Level 142 136-145 mmol/L Potassium Level 4.0 3.5-5.1 mmol/L Chloride Level 107 98-107 mmol/L Carbon Dioxide Level 27 21-32 mmol/L Anion Gap 8.0 3-11 mmol/L Blood Urea Nitrogen 14 7-18 mg/dl Creatinine 0.91 0.60-1.40 mg/dl Est Creatinine Clear Calc Drug Dose 81.7 ml/min Estimated GFR () 106.5 Estimated GFR (Non- 91.9 BUN/Creatinine Ratio 14.9 10-20 Random Glucose 116 70-99 mg/dl Calcium Level 9.1 8.5-10.1 mg/dl Triglycerides Level 141 0-150 mg/dl Cholesterol Level 155 0-200 mg/dl HDL Cholesterol 34 mg/dl LDL Cholesterol, Calculated 93 mg/dl VLDL Cholesterol, Calculated 28 mg/dl Cholesterol/HDL Ratio 4.6 Erythrocyte Sedimentation Rate 12 0-14 mm/hr
[2016-10-27] MEDS: CITALOPRAM 40 MG TAB PO SCH (20:08)
[2016-10-27] MEDS: ENOXAPARIN 40 MG/0.4 ML SYR SC SCH (20:09)
[2016-10-27] MEDS ORDERED: ATORVASTATIN 40 MG TAB PO SCH (21:00)
[2016-10-28] MEDS ORDERED: ASPIRIN 81 MG ECTAB PO SCH
[2016-10-28 04:25] VITALS: BP 115/70; PULSE 64; TEMP 36.9; O2SAT 95
[2016-10-28 06:02] LABS: BASO % 1.1 %; BASO ABS # 0.11 K/uL (0-0.2); COMPLETE YES; EOS % 2.9 %; HEMATOCRIT 44.9 % (42-52); IG% 0.2 %; LYMPH % 31.1 %; LYMPH ABS # 3.12 K/uL (1.2-3.4); MEAN CELL VOLUME 91.6 fL (80-100); MEAN PLATELET VOLUME 10.4 fL (7.4-10.4); MONO % 7.7 %; PLATELET COUNT 206 K/uL (130-400); WHITE BLOOD COUNT 10.03 K/uL (4.8-10.8)
[2016-10-28 07:16] VITALS: BP 122/66; PULSE 70; TEMP 36.6; O2SAT 94
[2016-10-28 07:24] LABS: BUN/CREATININE RATIO 14.7 (10-20); CALCIUM 9.2 mg/dl (8.5-10.1); CREATININE 1.1 mg/dl (0.60-1.40); POTASSIUM 4.3 mmol/L (3.5-5.1)
[2016-10-28] MEDS: ASPIRIN 325 MG ECTAB PO SCH (08:48)
[2016-10-28] MEDS: CHOLECALCIFEROL 1000 INTER.UNIT TAB PO SCH (08:48)
[2016-10-28] MEDS: CLOPIDOGREL BISULFATE 75 MG TAB PO SCH (08:48)
[2016-10-28] MEDS ORDERED: CLOPIDOGREL BISULFATE 75 MG TAB PO SCH (09:00)
--- NOTE | 2016-10-28 09:41 | Progress Note ---
Internal Med Progress Note Date of Service: Oct 28, 2016. Provider Documentation: SUBJECTIVE: Patient is doing well. Denies any c/o localized weakness, numbness, headaches, nausea, vomiting. No fever, chills. Eager to be discharged. OBJECTIVE: Vital Signs-as noted below Exam: General-AAOX3, no distress Eyes-No icterus Neck-Supple, no bruits Lungs-AEBE , No wheezing, rhonchi Heart-S1, S2 normal Abdomen-Soft, non tender, non distended, BS present Extremities-No edema Neuro-Left inferior quandrantonopsia ; Power 5/5 , sensation normal Lab data as noted below. Diagnostic Radiology HEAD CT NONCONTRAST CT DOSE: 537.48 mGy.cm HISTORY: Stroke symptoms. Stroke TECHNIQUE: Multiaxial CT images of the head were performed without the use of intravenous contrast. Automated exposure control was utilized for this study. Comparison: Head CT 02/12/2016. Findings: The paranasal sinuses and mastoid air cells are clear. The calvarium and skull base are intact. The ventricles and sulci are within normal limits. There is no mass, hematoma, midline shift, or acute infarct. Impression: No acute intracranial abnormality. CHEST ONE VIEW PORTABLE CLINICAL HISTORY: Stroke HEADACHE COMPARISON STUDY: 12/27/2011 FINDINGS: The cardiac and mediastinal contours are normal. There is no evidence of focal pulmonary consolidation. There is no evidence of failure. No pleural effusions are visualized.[ There are minor right basilar atelectatic changes. IMPRESSION: No active disease in the chest. OUTPATIENT MRI 10/25/16 IMPRESSION: 1. 2 focal areas of restricted diffusion observed int eh right cerebral hemisphere; 1 posterior to the atria of the right lateral ventricle in the right parioeto-occipital subcortical white matter and the 2nd posteriorly i the subcortical white matter of the right occipital lobe. There is corresponding increased FLAIR and T2 singal in these regions and findings are therefore most consistent with regions of early subacute ischemia. 2. 7 mm focus of susceptibility artifact int eh left temporal lobe insular coretex most consistent with hemosiderin deposition from small old bleed. 3. Bilateral cerebral hemisphere microvascular chronic ischemic change. 4. Mild atrophic change. ASSESSMENT & PLAN: SUBACUTE CVA (RT PARIETO AND OCCIPITAL LOBE): MRI Brain outpatient - Right parietal and occipital infarct. Symptoms onset 6 days ago- vision changes Neurological deficit - Left Inferior Quandrantonopsia -Risk factors: Dyslipidemia, no other known risk factors, but HBA1C 7.1 here -On ASA 325 mg , Plavix added (reduce dose of aspirin to 81 mg on 10/29/16) per neurology , Atorvastatin- Increase dose to 40 mg from 10 mg q HS -Work up- CTA- negative for stenosis, Echocardiogram - EF 60-65%, Mild LVH, Mild AR, Interatrial septum with no ASD,, Lipid panel-LDL 93, goal < 70. Cardio net evaluation to be arranged for outpatient, Hypercoaguable panel collected- pending -PT/OT done -Appreciate neurology inputs DIABETES MELLITUS, NEW DIAGNOSIS ? -HBA1C 7.1 -Not on any medications at home as no prior diagnosis -Counseling about life style modifications done- ADA diet -Will defer further management to PCP as not to keen on starting medication now. DYSLIPIDEMIA -Continue statin- Increased dose of Atorvastatin from 10 mg to 40 mg q HS as goal is LDL < 70 Fasting lipid panel -LDL 93 ANXIETY/ DEPRESSION -Continue Buspar and Celexa GERD -Continue PRN PPI DVT PROPHYLAXIS -Lovenox SQ FULL CODE DISPOSITION -Follows with Dr. Cole for primary care -Ok to discharge home today Vital Signs: Date Time Temp Pulse Resp B/P Pulse Ox O2 Delivery O2 Flow Rate FiO2 10/28/16 08:00 Room Air 10/28/16 07:16 36.6 70 18 122/66 94 Room Air 10/28/16 04:25 36.9 64 16 115/70 95 Room Air 10/28/16 04:00 Room Air 10/28/16 00:01 Room Air 10/27/16 23:20 36.7 64 16 107/63 92 Room Air 10/27/16 20:00 Room Air 10/27/16 19:03 36.7 59 18 126/64 95 Room Air 10/27/16 16:00 93 Room Air 10/27/16 15:18 36.8 58 18 125/62 93 Room Air 10/27/16 12:00 Room Air 10/27/16 11:07 36.7 53 20 124/69 93 Room Air Lab Results: Results Past 24 Hours Test 10/27/16 11:03 10/28/16 05:25 Range/Units Erythrocyte Sedimentation Rate 12 0-14 mm/hr White Blood Count 10.03 4.8-10.8 K/uL Red Blood Count 4.90 4.7-6.1 M/uL Hemoglobin 15.7 14.0-18.0 g/dL Hematocrit 44.9 42-52 % Mean Corpuscular Volume 91.6 80-100 fL Mean Corpuscular Hemoglobin 32.0 25-34 pg Mean Corpuscular Hemoglobin Concent 35.0 32-36 g/dl Platelet Count 206 130-400 K/uL Mean Platelet Volume 10.4 7.4-10.4 fL Neutrophils (%) (Auto) 57.0 % Lymphocytes (%) (Auto) 31.1 % Monocytes (%) (Auto) 7.7 % Eosinophils (%) (Auto) 2.9 % Basophils (%) (Auto) 1.1 % Neutrophils # (Auto) 5.72 1.4-6.5 K/uL Lymphocytes # (Auto) 3.12 1.2-3.4 K/uL Monocytes # (Auto) 0.77 0.11-0.59 K/uL Eosinophils # (Auto) 0.29 0-0.5 K/uL Basophils # (Auto) 0.11 0-0.2 K/uL RDW Standard Deviation 40.7 36.4-46.3 fL RDW Coefficient of Variation 12.0 11.5-14.5 % Immature Granulocyte % (Auto) 0.2 % Immature Granulocyte # (Auto) 0.02 0.00-0.02 K/uL Sodium Level 142 136-145 mmol/L Potassium Level 4.3 3.5-5.1 mmol/L Chloride Level 106 98-107 mmol/L Carbon Dioxide Level 30 21-32 mmol/L Anion Gap 6.0 3-11 mmol/L Blood Urea Nitrogen 16 7-18 mg/dl Creatinine 1.10 0.60-1.40 mg/dl Est Creatinine Clear Calc Drug Dose 67.6 ml/min Estimated GFR () 84.7 Estimated GFR (Non- 73.1 BUN/Creatinine Ratio 14.7 10-20 Random Glucose 130 70-99 mg/dl Calcium Level 9.2 8.5-10.1 mg/dl
[2016-10-28] MEDS ORDERED: LPT10 PO (09:55)
[2016-10-28] MEDS ORDERED: PLV75 PO (09:56)
[2016-10-28] MEDS ORDERED: ASPI-435 PO (09:56)
--- NOTE | 2016-10-28 10:01 | Discharge Instructions ---
Discharge Instructions Date of Service Oct 28, 2016. Admission Reason for Admission: Subacute Cva Discharge Discharge Diagnosis / Problem: 1. Subacute Stroke (Rt Parietal-Occipital infarction) Discharge Goals Goal(s): Improve disease control, Diagnostic testing, Therapeutic intervention , Prevent Disease Progression Activity Recommendations Activity Limitations: resume your previous activity (as tolerated ) . Instructions / Follow-Up Instructions / Follow-Up MEDICATION CHANGES: 1. New medication: Plavix 75 mg daily added to Aspirin 81 mg daily 2. Atorvastatin increased to 40 mg daily from 10 mg q HS FOLLOW UP 1. With PCP (Dr Mcmahon) on at 9:45 AM MONITOR 1. Needs Cardio net to be arranged for outpatient with new stroke 2. Need to monitor Blood glucose levels as new DM with HBA1C of 7.1 Risk Factors for Stroke: You can reduce your chances of stroke by working with your medical provider to adopt a healthy lifestyle. Some specific ways to lower your chance of stroke are: * If you are a smoker, now is the time to stop smoking cigarettes * If you are diabetic, improve the control of your blood sugars * Avoid excessive amounts of alcohol * Control high blood pressure * Lose weight if you are overweight * Be sure to lead an active lifestyle * Eat a healthy diet low in salt, cholesterol and fat You should know about other risk factors for stroke that you are unable to control. These include: * Age 55 years or older * Male gender * Certain racial groups: , or / * Family History of Stroke, Mini stroke or Heart Attack * Sickle Cell Disease Follow Up: It is important for you to keep your follow up appointments with your medical provider. Current Hospital Diet Patient's current hospital diet: AHA Diet (Heart Healthy) Discharge Diet Recommended Diet: AHA Diet (Heart Healthy), Low Sodium Diet (2gm Na), Diabetes Type 2 Diet Pending Studies Studies pending at discharge: no Laboratory Results Hemoglobin A1c Test 10/26/16 16:10 Range/Units Estimated Average Glucose 157 mg/dl Hemoglobin A1c 7.1 H 4.5-5.6 % Lipid Panel Test 10/27/16 06:16 Range/Units Triglycerides Level 141 0-150 mg/dl Cholesterol Level 155 0-200 mg/dl HDL Cholesterol 34 mg/dl Cholesterol/HDL Ratio 4.6 LDL Cholesterol, Calculated 93 mg/dl Medical Emergencies . Who to Call and When: Medical Emergencies: Call 911 immediately if you experience any of the following warning signs and symptoms of Stroke: * Sudden numbness or weakness of the face, arm or leg, especially on one side of the body * Sudden confusion, trouble speaking or understanding * Sudden trouble seeing in one or both eyes * Sudden trouble walking, dizziness, loss of balance or coordination * Sudden severe headache with no cause Do not delay calling 911 if you experience any warning signs or symptoms of a stroke. Delay in seeking medical attention may affect what treatments can be given to you. . Non-Emergent Contact Non-Emergency issues call your: Primary Care Provider . . "Provider Documentation" section prepared by Zulma Garcia. Stroke Core Measures Reason no t-PA for Stroke: Treatment not indicated Reason no antithrom by day 2: Treatment provided - N/A Reason no antithrom at D/C: Treatment provided - N/A Reason no statin at D/C: Treatment provided - N/A Reason no anticoag w/a fib: Treatment not indicated VTE Core Measure Inpt VTE Proph given/why not?: Enoxaparin (Lovenox)SQ
--- NOTE | 2016-10-28 10:04 | Discharge Summary ---
Discharge Summary Date of Service Oct 28, 2016. Discharge Summary Admission Date: Oct 26, 2016 at 17:03 Discharge Date: Oct 28, 2016 Discharge Disposition: Home Principal Diagnosis: 1. Subacute stroke (Rt Parietal/Occipital Infarct) 2. Newly diagnosed Diabetes Mellitus Secondary Diagnoses/Problems: 1. Dyslipidemia 2. Anxiety/Depression 3. GERD Procedures: Tele monitoring CT head CTA CXR Echocardiogram with bubble study Consultations: Neurology, Dr Arevalo Pending Studies/Follow-Up: Instructions / Follow-Up Instructions / Follow-Up MEDICATION CHANGES: 1. New medication: Plavix 75 mg daily added to Aspirin 81 mg daily 2. Atorvastatin increased to 40 mg daily from 10 mg q HS FOLLOW UP 1. With PCP (Dr Mcmahon) on at 9:45 AM 2. With neurology in 4 weeks MONITOR 1. Needs Cardio net evaluation to be arranged for outpatient with new stroke. 2. Need to monitor Blood glucose levels as new DM with HBA1C of 7.1 Medication Reconciliation New Medications: Aspirin (Aspirin 81) 81 Mg Tab 81 MG PO DAILY for 30 Days, #30 TAB Clopidogrel Bisulfate (Clopidogrel) 75 Mg Tab 75 MG PO QAM for 30 Days, #30 TAB 2 Refills Changed Medications: Atorvastatin (Atorvastatin Calcium) 10 Mg Tab 40 MG PO DAILY for 30 Days, #120 TAB 2 Refills (Changed from: 10 MG; Refills: ) Continued Medications: Buspirone HCl (Buspirone HCl) 5 Mg Tab 5 MG PO QAM Cholecalciferol (Vitamin D3) 1,000 Unit Chw 1000 INTER.UNIT PO QAM Citalopram (Citalopram Hydrobromide) 40 Mg Tab 40 MG PO HS, TAB Omeprazole (Prilosec) 20 Mg Cap 20 MG PO DAILY PRN for Heartburn Admission Information HPI (per Admitting provider): This is a 61 year old male with PMH of dyslipidemia and other problems listed below who was sent to the ED for abnormal outpatient MRI brain. Patient reports 6 days ago he developed "fluttering" of his vision with "dark patches" in his vision. After the onset of vision changes developed a severe right parietal headache. The visual changes resolved the following day but headache persisted. Had 1 episode N/V 5 days ago which resolved. He was seen in [facility] internal medicine clinic on 10/22 and had outpatient MRI done yesterday 4/6 which showed 2 focal areas of subacute ischemia, so was sent to the ER. Pt states headache is currently rated 4/10. Has tried ibuprofen at home which took the edge off. He reports having similar BEST with visual changes in the past which self resolved so he was not evaluated by a physician. Had chest pain in the past, non- exertional, related to anxiety at work, but this has not occurred in the past week. Denies fever, chills, speech or swallowing difficulty, facial droop, focal weakness or numbness, dizziness, balance difficulty, SOB, abdominal pain, diarrhea, urinary changes, calf pain, edema, rash. Denies history of HTN, DM, arrhythmia, TIA, CVA, migraine. He is not aware of any hx of GI bleeding or brain bleed. Patient's outpatient MRI did show an area consistent with small old bleed. 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 toes downgoing. gait not assessed.) Skin: normal color, warm/dry Hospital Course SUBACUTE CVA (RT PARIETO AND OCCIPITAL LOBE): MRI Brain outpatient - Right parietal and occipital infarct. Symptoms onset 6 days ago- vision changes Neurological deficit - Left Inferior [place]opsia -Risk factors: Dyslipidemia, no other known risk factors, but HBA1C 7.1 here -On ASA 325 mg , Plavix added (reduce dose of aspirin to 81 mg on 10/29/16) per neurology , Atorvastatin- Increased dose to 40 mg from 10 mg q HS -Work up- CTA- negative for stenosis, Echocardiogram - EF 60-65%, Mild LVH, Mild AR, Interatrial septum with no ASD,, Lipid panel-LDL 93, goal < 70. Cardio net evaluation to be arranged for outpatient, Hypercoaguable panel collected- pending -PT/OT done -Appreciate neurology inputs DIABETES MELLITUS, NEW DIAGNOSIS ? -HBA1C 7.1 -Not on any medications at home as no prior diagnosis -Counseling about life style modifications done- ADA diet -Will defer further management to PCP as not to keen on starting medication now. DYSLIPIDEMIA -Continue statin- Increased dose of Atorvastatin from 10 mg to 40 mg q HS as goal is LDL < 70 Fasting lipid panel -LDL 93 ANXIETY/ DEPRESSION -Continue Buspar and Celexa GERD -Continue PRN PPI DVT PROPHYLAXIS -Lovenox SQ FULL CODE DISPOSITION -Follows with Dr. Cole for primary care -Follow up with Neurology in 4 weeks -Ok to discharge home today Total time spent on discharge = 32 minutes This includes examination of the patient, discharge planning, medication reconciliation, and communication with other providers. Discharge Instructions Discharge Goals Goal(s): Improve disease control, Diagnostic testing, Therapeutic intervention , Prevent Disease Progression Activity Recommendations Activity Limitations: resume your previous activity (as tolerated ) . Instructions / Follow-Up Instructions / Follow-Up MEDICATION CHANGES: 1. New medication: Plavix 75 mg daily added to Aspirin 81 mg daily 2. Atorvastatin increased to 40 mg daily from 10 mg q HS FOLLOW UP 1. With PCP (Dr Mcmahon) on at 9:45 AM MONITOR 1. Needs Cardio net to be arranged for outpatient with new stroke 2. Need to monitor Blood glucose levels as new DM with HBA1C of 7.1 Risk Factors for Stroke: You can reduce your chances of stroke by working with your medical provider to adopt a healthy lifestyle. Some specific ways to lower your chance of stroke are: * If you are a smoker, now is the time to stop smoking cigarettes * If you are diabetic, improve the control of your blood sugars * Avoid excessive amounts of alcohol * Control high blood pressure * Lose weight if you are overweight * Be sure to lead an active lifestyle * Eat a healthy diet low in salt, cholesterol and fat You should know about other risk factors for stroke that you are unable to control. These include: * Age 55 years or older * Male gender * Certain racial groups: , or / * Family History of Stroke, Mini stroke or Heart Attack * Sickle Cell Disease Follow Up: It is important for you to keep your follow up appointments with your medical provider. Current Hospital Diet Patient's current hospital diet: AHA Diet (Heart Healthy) Discharge Diet Recommended Diet: AHA Diet (Heart Healthy), Low Sodium Diet (2gm Na), Diabetes Type 2 Diet Pending Studies Studies pending at discharge: no Laboratory Results Hemoglobin A1c Test 10/26/16 16:10 Range/Units Estimated Average Glucose 157 mg/dl Hemoglobin A1c 7.1 H 4.5-5.6 % Lipid Panel Test 10/27/16 06:16 Range/Units Triglycerides Level 141 0-150 mg/dl Cholesterol Level 155 0-200 mg/dl HDL Cholesterol 34 mg/dl Cholesterol/HDL Ratio 4.6 LDL Cholesterol, Calculated 93 mg/dl Medical Emergencies . Who to Call and When: Medical Emergencies: Call 911 immediately if you experience any of the following warning signs and symptoms of Stroke: * Sudden numbness or weakness of the face, arm or leg, especially on one side of the body * Sudden confusion, trouble speaking or understanding * Sudden trouble seeing in one or both eyes * Sudden trouble walking, dizziness, loss of balance or coordination * Sudden severe headache with no cause Do not delay calling 911 if you experience any warning signs or symptoms of a stroke. Delay in seeking medical attention may affect what treatments can be given to you. . Non-Emergent Contact Non-Emergency issues call your: Primary Care Provider . . "Provider Documentation" section prepared by Zulma Garcia. Stroke Core Measures Reason no t-PA for Stroke: Treatment not indicated Reason no antithrom by day 2: Treatment provided - N/A Reason no antithrom at D/C: Treatment provided - N/A Reason no statin at D/C: Treatment provided - N/A Reason no anticoag w/a fib: Treatment not indicated VTE Core Measure Inpt VTE Proph given/why not?: Enoxaparin (Lovenox)SQ
[2016-10-28 10:13] VITALS: BP 122/66; PULSE 70; TEMP 36.6; O2SAT 94
[2016-10-28] MEDS ORDERED: NURSING VERBAL MED ORDER ONE (10:15)
[2016-10-28] MEDS ORDERED: CITALOPRAM 40 MG TAB PO SCH (10:30)
[2016-10-28] MEDS ORDERED: CHOLECALCIFEROL 1000 INTER.UNIT TAB PO SCH (10:30)
[2016-10-28] MEDS ORDERED: ASPIRIN 325 MG ECTAB PO SCH (10:30)
[2016-10-28] MEDS ORDERED: ATORVASTATIN 40 MG TAB PO SCH ×2 (10:30)
--- NOTE | 2016-10-28 14:18 | Pharmacy Progress Note ---
Pharmacist Stroke Counseling Date of Service Oct 28, 2016. Scope Pharmacy has been consulted to provide medication discharge counseling for this patient admitted with ischemic stroke/hemorrhagic stroke/ transient ischemic attack as per the Pharmacist Discharge Counseling for Stroke Patients Protocol. Medications on Discharge New Medications: Aspirin (Aspirin 81) 81 Mg Tab 81 MG PO DAILY for 30 Days, #30 TAB Clopidogrel Bisulfate (Clopidogrel) 75 Mg Tab 75 MG PO QAM for 30 Days, #30 TAB 2 Refills Changed Medications: Atorvastatin (Atorvastatin Calcium) 10 Mg Tab 40 MG PO DAILY for 30 Days, #120 TAB 2 Refills (Changed from: 10 MG; Refills: ) Continued Medications: Buspirone HCl (Buspirone HCl) 5 Mg Tab 5 MG PO QAM Cholecalciferol (Vitamin D3) 1,000 Unit Chw 1000 INTER.UNIT PO QAM Citalopram (Citalopram Hydrobromide) 40 Mg Tab 40 MG PO HS, TAB Omeprazole (Prilosec) 20 Mg Cap 20 MG PO DAILY PRN for Heartburn Clarified with provider medication dose discrepancies: * Pt is receiving Aspirin 325mg PO daily in house --> Is to discharge home on 81mg daily * Pt is receiving Lipitor 80mg daily in house --> Is to discharge home on Lipitor 40mg daily Action The above medications, specifically ones for stroke treatment/prophylaxis, have been reviewed in detail with the patient and/or patient insurance claims representative(s) prior to discharge. This includes indication, common adverse reactions, drug interactions, and medication administration. Medication counseling has been employed using the teach-back method to ensure understanding. Outcome The patient and/or patient insurance claims representative(s) have demonstrated understanding of the medications. Please note, they are aware that the pharmacist will call them within 72 hours post-discharge to confirm that the appropriate medications are being taken and answer any further medication related questions the patient might have at that time. Contact information Individual to be contacted: Néstor Jan Relationship to patient (if applicable): Self Phone number: [phone] Best time to call: Anytime Additional comments: 24hr supply of new medications and all continued medications were dispensed at the time of discharge. Pt regular outpatient pharmacy was closed today. Thank you for allowing pharmacy to be involved in the care of this patient. Please call [phone] with any additional questions
--- NOTE | 2016-10-31 15:27 | Pharmacy Progress Note ---
Pharmacist Post D/C Phone Note Date of phone call: Oct 31, 2016. Individual with whom pharmacist spoke to: Patient The following questions were reviewed during the phone call with responses listed below each: Can you tell me the medications that you are currently taking as well as when and how you take each medication? - Medications Dose Route/Sig Max Daily Dose Days Date Category Aspirin 81 (Aspirin) 81 Mg Tab 81 Mg PO DAILY 30 10/28/16 Rx Clopidogrel (Clopidogrel Bisulfate) 75 Mg Tab 75 Mg PO QAM 30 10/28/16 Rx Atorvastatin Calcium (Atorvastatin) 10 Mg Tab 40 Mg PO DAILY 30 10/28/16 Rx Buspirone HCl 5 Mg Tab 5 Mg PO QAM 10/26/16 Reported Prilosec (Omeprazole) 20 Mg Cap 20 Mg PO DAILY PRN 12/29/15 Reported Vitamin D3 (Cholecalciferol) 1,000 Unit Chw 1,000 Inter.unit PO QAM 07/20/15 Reported Citalopram Hydrobromide (Citalopram) 40 Mg Tab 40 Mg PO HS 07/20/15 Reported When have you missed any doses of your medications? - no What side effects are you having from your medications? - none What questions do you have about your medications? - none What problems are you having obtaining your medications? - none When is your next appointment with your primary care doctor? - 11/02/16 Additional comments: - none As per the Pharmacist Discharge Counseling for Stroke Patients Protocol, this phone call has been completed within 72 hours of discharge. Thank you for allowing us to be involved in the care of this patient.
[2016-11-01 11:31] LABS: ANTITHROMBINIII ACTIVITY** 94 % activity (80-120); B2 GLYCOPROTEIN IGA <9 SAU (<=20); B2 GLYCOPROTEIN IGG <9 SGU (<=20); B2 GLYCOPROTEIN IGM <9 SMU (<=20); LUPUS ANTICOAGULANT** TC36573X Negative (Negative); PROTEIN C ACTIVITY** TC 1777X >200 % (70-180); PROTEIN S ACT(FUNCT)**1779X 97 % (70-150)
== END 2016-10-28 11:51 | disposition home or self-care (01) | DRG 66 ==
LOC: CANRESERV → ENRESERVTM → ENRESERVDT → C.EDB 14:59 → C.2E 17:03 → EDBEDREQ 18:07
PROVIDERS: ADMIT Hospitalist; ATTEND Internal Medicine
DX: I63.8 Other cerebral infarction (principal); E11.9 Type 2 diabetes mellitus without complications; E78.5 Hyperlipidemia, unspecified; F32.9 Major depressive disorder, single episode, unspecified; F41.9 Anxiety disorder, unspecified; K21.9 Gastro-esophageal reflux disease without esophagitis; I35.1 Nonrheumatic aortic (valve) insufficiency; Z82.3 Family history of stroke

== ENCOUNTER 2018-02-12 18:50 | Emergency (ER) | payer BC, OTHER ==
[~2018-02-12] VITALS: Ht 170.2 cm; Wt 72.8 kg
[~2018-02-12 18:50] MED LIST changes: +ASPI-435 PO; +BSP/5 PO; -BUSP5TAB59 PO; +LPT10 PO; +OMEP20CA9 PO; +PLV75 PO
[2018-02-12 18:53] VITALS: TEMP 36.7; Ht 170.2 cm; Wt 72.8 kg
[2018-02-12] MEDS ORDERED: RANITIDINE HCL 150 MG TAB PO ONE (19:15)
--- NOTE | 2018-02-12 19:26 | EMERGENCY ROOM VISIT NOTE ---
History Report prepared by Martita: Kathleen Hickman Under the Supervision of: Dr. To Rao M.D. 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 He reports he is allergic to bees but does not have an EpiPen. The patient notes his throat feels tight and he has cotton mouth. He states the last time he was stung was 15 years ago. Pt denies LOC, headache, fevers, chills, diaphoresis, visual changes, neck pain, chest pain, breathing difficulties, nausea, vomiting, abdominal pain, back pain, melena, hematochezia, urinary symptoms, numbness, weakness, lymphadenopathy, rash, or other complaints. Source of History: patient Onset: 20 minutes Position: neck Quality: other (wasp sting) Modifying Factors (Worsening): other (Allergic to bees) Note: Positive throat tightness and cotton mouth Review of Systems See HPI for pertinent positives and negatives. A total of ten systems were reviewed and were otherwise negative. Past Medical & Surgical Medical Problems: (1) Anxiety (2) Depression (3) Depressive Disorder Nec (4) Deviated Nasal Septum (5) Dyslipidemia (6) Generalized anxiety disorder (7) GERD (gastroesophageal reflux disease) (8) Subacute CVA Surgical Problems: (1) History of nasal septoplasty (2) History of wisdom tooth extraction Family History CVA GRANDMOTHER FH: cancer FH: diabetes mellitus FH: heart disease Social History Smoking Status: Never Smoker Alcohol Use: occasionally Drug Use: none Marital Status: Occupation Status: employed Current/Historical Medications Scheduled Aspirin (Aspirin 81), 81 MG PO DAILY Atorvastatin (Lipitor), 40 MG PO DAILY Buspirone HCl (Buspirone HCl), 5 MG PO QAM Cholecalciferol (Vitamin D3), 1,000 INTER.UNIT PO QAM Citalopram (Citalopram Hydrobromide), 40 MG PO HS Clopidogrel Bisulfate (Clopidogrel), 75 MG PO QAM Prednisone (Prednisone), 50 MG PO DAILY Scheduled PRN Omeprazole (Prilosec), 20 MG PO DAILY PRN for Heartburn Allergies Coded Allergies: Bee Venom (Verified Allergy, Unknown, Swelling, 12/29/15) Physical Exam Vital Signs Date Time Temp Pulse Resp B/P (MAP) Pulse Ox O2 Delivery O2 Flow Rate FiO2 02/12/18 21:10 63 18 142/80 93 02/12/18 19:48 60 93 Room Air 02/12/18 18:53 36.7 71 18 162/83 96 Room Air Physical Exam GENERAL: Awake, alert, well-appearing, in no distress HENT: Normocephalic, atraumatic. Oropharynx unremarkable. EYES: Normal conjunctiva. Sclera non-icteric. NECK: Supple. No nuchal rigidity. FROM. No masses. RESPIRATORY: Clear to auscultation. No wheezes. No rales. Normal respiratory effort. CARDIAC: Normal rate. Normal rhythm. No murmurs. No rubs. Extremities warm and well perfused. Pulses equal. No JVD. GI: Soft, non-distended. No tenderness to palpation. No rebound or guarding. No masses. RECTAL: Deferred. MUSCULOSKELETAL: Atraumatic. Chest examination reveals no tenderness. The back is symmetrical on inspection without obvious abnormality. There is no CVA tenderness to palpation. No joint edema. LOWER EXTREMITIES: Calves are equal size bilaterally and non-tender. No edema. No discoloration. NEURO: Normal sensorium. No sensory or motor deficits noted. SKIN: No jaundice noted. Redness and swelling at the are of the sting. Medical Decision & Procedures Medications Administered Medications (Trade) Dose Ordered Sig/Elie Route Start Time Stop Time Status Last Admin Dose Admin Diphenhydramine HCl (Benadryl Cap) 50 mg NOW ONCE PO 02/12/18 19:15 02/12/18 19:16 DC 02/12/18 19:06 50 MG Ranitidine HCl (zANTac TAB) 150 mg NOW ONCE PO 02/12/18 19:15 02/12/18 19:16 DC 02/12/18 19:06 150 MG Prednisone (PredniSONE TAB) 60 mg NOW STAT PO 02/12/18 19:01 02/12/18 19:02 DC 02/12/18 19:06 60 MG Epinephrine (Epipen) 0.3 mg ONE STAT IM 02/12/18 20:43 02/12/18 20:44 DC 02/12/18 20:57 0.3 MG ED Course 1856: The patient was evaluated in room D3. A complete history and physical exam was performed. 1900: Ordered Prednisone 60 mg PO 1914: Ordered zANTac Tab 150 mg PO, Benadryl Cap 50 mg PO 2014: I checked on the patient at this time. He is feeling better and his swelling and redness has resolved. 2042: The patient was given EpiPen 0.3 mg IM to go home with. 2044: I reevaluated the patient. His symptoms are resolved. Discussed results and discharge instructions: He verbalized understanding and agreement. The patient is ready for discharge. Medical Decision Triage Nursing notes reviewed and agree them. The patient's history was concerning for possible allergic reaction. Differential diagnosis: Etiologies such as allergic reaction, anaphylaxis, urticaria, Matt-Shad syndrome, toxic epidermal necrolysis, erythema multiforme, cellulitis, as well as others were entertained. Physical examination: As above. ER treatment provided: Continuous cardiac monitoring Benadryl 50 mg PO Zantac 150 mg PO Prednisone 60mg PO On reassessment the patient felt better. Diagnostic interpretation by me: Deferred It appears the patient had a minor reaction to his hymenoptera envenomation. No stinger was present in the wound. He was treated with oral medications and observed. He did very well with this. Conservative management was discussed. Patient felt comfortable with this plan. He was given an EpiPen at the time of discharge. By the evaluation outlined above other emergent etiologies such as those listed in the differential, as well as others, were deemed relatively unlikely. The patient was educated about the findings as listed above. All questions were answered and the patient was pleased with the treatment. Return instructions were outlined and the patient was discharged in stable condition. The patient was referred to his PCP for follow-up for a recheck of the current condition. Medication Reconcilliation Current Medication List: was personally reviewed by me Blood Pressure Screening Patient's blood pressure: Elevated blood pressure Blood pressure disposition: Elevated BP felt to be situational Impression Primary Impression: Hymenoptera sting Additional Impressions: Hymenoptera reaction Allergic reaction Scribe Attestation The scribe's documentation has been prepared under my direction and personally reviewed by me in its entirety. I confirm that the note above accurately reflects all work, treatment, procedures, and medical decision making performed by me. Departure Information Dispostion Home / Self-Care Prescriptions Prednisone (Prednisone) 50 Mg Tab 50 MG PO DAILY for 3 Days, #3 TAB Prov: To Rao MD 02/12/18 Referrals Watson Cole M.D. (PCP) Forms HOME CARE DOCUMENTATION FORM, IMPORTANT VISIT INFORMATION Patient Instructions My [facility] Additional Instructions ALLERGIC REACTION INSTRUCTIONS: DO NOT drive, drink alcohol, operate machinery, or perform dangerous activities today. You were given medications in the ER that can affect your ability to safely function or operate a vehicle. Epi-Pen: Use one injection as instructed for severe allergic reactions associated with shortness of breath, difficulty breathing, or throat or tongue swelling. If you use this injection call 911 or proceed immediately to the nearest Emergency Room. Prednisone 50mg: Once daily until the prescription is finished. It is best to take this earlier in the day as some patients note occasional difficulty falling asleep when taken in the late evening. Diphenhydramine(Benadryl) 25mg: use 25 to 50 mg every six hours for swelling, itching, or hives. This medication is sedating and will cause drowsiness. Avoid alcohol, operating machinery or dangerous equipment, working on ladders or roofs, DRIVING, or situations where being under the influence may be dangerous. Zantac 75: Take two pills twice a day along with Benadryl as needed for swelling , itching, or hives. Most people know this for its affect on the stomach, but it also acts similar to, but less potent than Benadryl for allergic reactions. Both the Benadryl and the Zantac are available [id number]. Continue current medications. Return to the emergency department for worsening of your rash, swelling of your face, lips, tongue, or throat, difficulty breathing, vomiting, or as needed. Follow-up with your primary care physician in 2 to 3 days for a recheck of your current condition. Problem Qualifiers
[2018-02-12] MEDS ORDERED: EPINEPHRINE ADULT AUTO-INJECT 0.3 MG SYR IM STA (20:43)
[2018-02-12] MEDS ORDERED: PRED50TA PO (20:46)
[2018-02-12 21:10] VITALS: BP 142/80; PULSE 63; O2SAT 93
== END 2018-02-12 21:33 | disposition home or self-care (01) ==
LOC: C.EDB 18:50 → C.EDD 21:33
DX: T63.441A Toxic effect of venom of bees, accidental (unintentional), initial encounter (principal); T78.40XA Allergy, unspecified, initial encounter; X58.XXXA Exposure to other specified factors, initial encounter; Y92.89 Other specified places as the place of occurrence of the external cause; Y99.0 Civilian activity done for income or pay; F41.9 Anxiety disorder, unspecified; F32.9 Major depressive disorder, single episode, unspecified; E78.5 Hyperlipidemia, unspecified; K21.9 Gastro-esophageal reflux disease without esophagitis; Z86.73 Personal history of transient ischemic attack (TIA), and cerebral infarction without residual deficits; Z79.82 Long term (current) use of aspirin; Z79.899 Other long term (current) drug therapy; Z91.030 Bee allergy status